=== PATIENT | male | born 1960 | race Caucasian/White ===

== ENCOUNTER 2017-10-05 19:50 | Inpatient (IN) | payer OTHER ==
[2017-10-05] MEDS: IV NORMAL SALINE 1000ML BAG 1,000 ML IV ×3 (20:32→23:32)
[2017-10-05 20:33] LABS: ADD MAN DIFF? NO
[2017-10-05 20:35] LABS: BASO % 0 % (0-3); EOS % 0 % (0-3); HEMATOCRIT 48.2 % (39.0-53.0); HEMOGLOBIN 16.7 g/dL (13.0-17.5); LYMPH # 1.2 x10^3/uL (1.0-4.8); LYMPH % 9 % (24-48); MEAN CORPUSCULAR HEMOGLOBIN 37 pg (25-35); MEAN CORPUSCULAR HGB CONC 35 g/dL (31-37); MEAN CORPUSCULAR VOLUME 107 fL (79-100); MONO # 0.9 x10^3/uL (0.0-1.1); MONO % 7 % (0-9); NEUT # 11.7 x10^3uL (1.8-7.7); NEUT % 84 % (31-73); PLATELET COUNT 180 x10^3/uL (140-400); RED BLOOD COUNT 4.51 x10^6/uL (4.30-5.70); RED CELL DISTRIBUTION WIDTH 15.3 % (11.5-14.5); WHITE BLOOD COUNT 13.8 x10^3/uL (4.0-11.0)
[2017-10-05 20:41] LABS: BILIRUBIN,URINE LARGE (NEG); CLARITY,URINE CLEAR; COLOR,URINE ORANGE; GLUCOSE,URINE NEGATIVE (NEG); NITRITE,URINE POSITIVE (NEG); PROTEIN,URINE 30 mg/dL (NEG-TRACE)
[2017-10-05] MEDS ORDERED: CONTRAST GIVEN. MC (20:45)
[2017-10-05 20:46] LABS: ANION GAP 17 (6-14); BLOOD UREA NITROGEN 31 mg/dL (8-26); CALCIUM 9.9 mg/dL (8.5-10.1); CARBON DIOXIDE 26 mmol/L (21-32); CHLORIDE 93 mmol/L (98-107); CREATININE 1.3 mg/dL (0.7-1.3); GFR 57.1; GLUCOSE 102 mg/dL (70-99); POTASSIUM 3.2 mmol/L (3.5-5.1); SODIUM 136 mmol/L (136-145)
[2017-10-05 20:53] LABS: ALBUMIN 4.1 g/dL (3.4-5.0); ALK PHOS 96 U/L (46-116); ALT (SGPT) 18 U/L (16-63); AST (SGOT) 28 U/L (15-37); DIRECT BILIRUBIN 0.4 mg/dL (0.0-0.2); TOTAL BILIRUBIN 1.8 mg/dL (0.2-1.0); TOTAL PROTEIN 8.3 g/dL (6.4-8.2)
[2017-10-05 20:54] LABS: LIPASE 2526 U/L (73-393)
[2017-10-05 20:55] LABS: BACTERIA,URINE FEW /HPF (0-FEW); HYALINE CASTS, URINE MANY /HPF; RBC,URINE OCC /HPF (0-2); SQUAMOUS EPITHELIAL CELL,UR FEW /LPF
[2017-10-05] MEDS: IOHEXOL 300 MG/ML 100ML VIAL. IV (21:08)
[2017-10-05] MEDS: ONDANSETRON PF 4 MG/2 ML VIAL. IV (22:43)
[2017-10-05] MEDS: MORPHINE SULFATE 4 MG/ML DISP.SYRIN. IV (22:45)
[2017-10-05 23:19] LABS: ETHANOL < 10 mg/dL (0-10)
[2017-10-06 01:15] LABS: LACTIC ACID 0.8 mmol/L (0.4-2.0)
[2017-10-06 03:15] LABS: ADD MAN DIFF? NO
[2017-10-06 04:09] LABS: ANION GAP 10 (6-14); BLOOD UREA NITROGEN 24 mg/dL (8-26); CALCIUM 8.5 mg/dL (8.5-10.1); CARBON DIOXIDE 27 mmol/L (21-32); CHLORIDE 101 mmol/L (98-107); CREATININE 0.9 mg/dL (0.7-1.3); GFR 87.3; GLUCOSE 73 mg/dL (70-99); POTASSIUM 3.5 mmol/L (3.5-5.1); SODIUM 138 mmol/L (136-145)
[2017-10-06 04:15] LABS: BASO % 0 % (0-3); EOS # 0.1 x10^3/uL (0.0-0.7); EOS % 1 % (0-3); HEMATOCRIT 43.4 % (39.0-53.0); HEMOGLOBIN 15.5 g/dL (13.0-17.5); LYMPH # 1.4 x10^3/uL (1.0-4.8); LYMPH % 13 % (24-48); MEAN CORPUSCULAR HEMOGLOBIN 38 pg (25-35); MEAN CORPUSCULAR HGB CONC 36 g/dL (31-37); MEAN CORPUSCULAR VOLUME 107 fL (79-100); MONO # 0.6 x10^3/uL (0.0-1.1); MONO % 6 % (0-9); NEUT # 8.2 x10^3uL (1.8-7.7); NEUT % 80 % (31-73); PLATELET COUNT 146 x10^3/uL (140-400); RED BLOOD COUNT 4.05 x10^6/uL (4.30-5.70); RED CELL DISTRIBUTION WIDTH 15.3 % (11.5-14.5); WHITE BLOOD COUNT 10.2 x10^3/uL (4.0-11.0)
[2017-10-06 04:17] LABS: LIPASE 2364 U/L (73-393)
[2017-10-06] MEDS: IV NORMAL SALINE 1000ML BAG 1,000 ML IV ×2 (07:14→16:06)
[2017-10-06] MEDS: MORPHINE SULFATE 4 MG/ML DISP.SYRIN. IV (07:44)
[2017-10-06] MEDS: MULTIVIT INFUSN,ADULT 4,VIT K 10 ML, THIAMINE 100 MG, FOLIC ACID 1 MG in IV NORMAL SALI... IV (11:24)
[2017-10-06 12:44] LABS: INR 1.1 (0.8-1.1)
[2017-10-06 13:06] LABS: LIPASE 1431 U/L (73-393)
[2017-10-07 13:15] LABS: PROTHROMBIN TIME PATIENT 12.7 SEC (11.7-14.0)
[2017-10-07 13:16] LABS: LIPASE 1670 U/L (73-393)
[2017-10-08] MEDS ORDERED: oxyCODONE/APAP 5/325 1 TAB TABLET PO (09:30)
[2017-10-08] MEDS ORDERED: fentaNYL PF VIAL 100 MCG/2 ML VIAL IV (09:30)
[2017-10-08] MEDS ORDERED: ONDANSETRON ODT 4 MG TAB.RAPDIS. PO (09:30)
[2017-10-08] MEDS ORDERED: ONDANSETRON PF 4 MG/2 ML VIAL. IV (09:30)
[2017-10-08] MEDS ORDERED: ACETAMINOPHEN 500 MG TABLET PO (09:30)
[2017-10-08] MEDS: cefTRIAXone IV Push 1 GM VIAL. IVP (10:04)
[2017-10-08] MEDS: IV NORMAL SALINE 1000ML BAG 1,000 ML IV ×2 (13:18→21:28)
[2017-10-08] MEDS: ACETAMINOPHEN/CODEINE 300/30MG TABLET. PO (14:27)
[2017-10-09] MEDS: IV NORMAL SALINE 1000ML BAG 1,000 ML IV ×3 (03:11→13:27)
[2017-10-09 08:35] LABS: LIPASE 639 U/L (73-393)
[2017-10-09] MEDS: cefTRIAXone IV Push 1 GM VIAL. IVP (09:07)
[2017-10-09] MEDS ORDERED: LACTOBACILLUS RHAMNOSUS GG 1 CAPSULE. PO (21:00)
== END 2017-10-09 14:44 | disposition home or self-care (01) | DRG 871 ==
LOC: ER 19:50 → 5 SOUTH 22:00
DX: A41.9 Sepsis, unspecified organism (principal); K85.20 Alcohol induced acute pancreatitis without necrosis or infection; N39.0 Urinary tract infection, site not specified; F10.239 Alcohol dependence with withdrawal, unspecified; E87.6 Hypokalemia; Z82.49 Family history of ischemic heart disease and other diseases of the circulatory system; Z90.89 Acquired absence of other organs
CPT/HCPCS: 36415; 74177; 80048; 80076; 81001; 83605; 83690; 85025; 85610; 87040; 87086; 96361; 96365; 96375; 99285; 99285-25; 99406; G0480; J0690; J0696; J2270; J2405; J7030; Q9967